=== PATIENT | female | born 1975 | race Caucasian/White ===

== ENCOUNTER 2023-11-30 14:03 | Emergency (ER) | payer OTHER, SELFPAY ==
[2023-11-30 14:07] VITALS: BP 150/104
--- NOTE | 2023-11-30 14:55 | ED.SKININJ ---
HPI-Injury
<Virginia Camara PA-C - Last Filed: 11/30/23 17:20>
General
Chief Complaint: Bite
Source: patient and family
Exam Limitations: none
Time Seen by Provider: 11/30/23 14:13
Nursing documentation reviewed up to this point in time: agreed with
Travel History
Have you had any contact with someone who has COVID-19?: No
Do you have any symptoms of coronavirus? Fever > 100 degrees, chills, cough, shortness of breath, sore throat, loss of taste or smell, muscle aches, or headache?: No
History of Present Illness-Injury
Initial Injury comments:
48 y/o F h/o IDDM
here with right hand lacerations from dog bite
met a pet see supervisor in a parking lot to rehouse and adopt a rotweiler and suddenly was bit by the dog
pt doesn't recall trying to pet the dog
they just had gotten out of the car to talk and the dog jumped up and bit the patient
she has pain and laceration sto right middle and right index fingers
she has slight tingling
pt is anxiious
the dog apparently is a house pet and is UTD on vaccinations
Phy Exam
<Virginia Camara PA-C - Last Filed: 11/30/23 17:20>
Physical Exam
Physical Exam:
GENERAL: Alert , anxios
HEAD: NCAT
CV: cap refill intact right hand fingers
NEUROLOGICAL: Alert and oriented, no focal neuro deficits, , 5/5 strength, sensation intact,
SKIN: Warm and dry, irregular lacerations volar PIP joint right middle finger approx 2 cm and base of 2nd MCP joint palmar aspect approx 1.5 cm
no obvious tendon or nerve injuries
ROM is limited due to pain but she has no deficits
MUSCULOSKELETAL: painful flexion of PIP of middle finger but able to passively range
nv intact
PSYCH: Normal and appropriate interaction.
Course
<Virginia Camara PA-C - Last Filed: 11/30/23 17:20>
Orders/Labs/Results
Orders:
Orders
11/30/23 14:40
CR Hand - Right Min 3 Views Urgent
Comment:
Reason For Exam: righ thand dog bite
11/30/23 14:41
Amoxicillin 875 mg/Clav 125 mg [Augmentin 875 mg/125 mg] 1 tablet PO NOW STA
Tetanus/Diphth/Acelpertussis [Adacel] 0.5 ml IM .ONCE ONE
11/30/23 14:58
Hydrocodone 5/APAP 325 [[place] 5/325] 1 tablet PO NOW STA
Vital Signs
Initial and Last Documented VS:
Initial Vital Signs
Temp Pulse Resp BP Pulse Ox
98.3 F 72 16 150/104 94
11/30/23 14:07 11/30/23 14:07 11/30/23 14:07 11/30/23 14:07 11/30/23 14:07
Last Documented Vital Signs
Temp Pulse Resp BP Pulse Ox
98.3 F 82 18 130/95 97
11/30/23 14:07 11/30/23 17:17 11/30/23 17:17 11/30/23 17:17 11/30/23 17:17
<Ivania Khoury MD - Last Filed: 11/30/23 15:22>
Orders/Labs/Results
Orders:
Orders
11/30/23 14:40
CR Hand - Right Min 3 Views Urgent
Comment:
Reason For Exam: righ thand dog bite
11/30/23 14:41
Amoxicillin 875 mg/Clav 125 mg [Augmentin 875 mg/125 mg] 1 tablet PO NOW STA
Tetanus/Diphth/Acelpertussis [Adacel] 0.5 ml IM .ONCE ONE
11/30/23 14:58
Hydrocodone 5/APAP 325 [[place] 5/325] 1 tablet PO NOW STA
Vital Signs
Initial and Last Documented VS:
Initial Vital Signs
Temp Pulse Resp BP Pulse Ox
98.3 F 72 16 150/104 94
11/30/23 14:07 11/30/23 14:07 11/30/23 14:07 11/30/23 14:07 11/30/23 14:07
Last Documented Vital Signs
Temp Pulse Resp BP Pulse Ox
98.3 F 82 18 130/95 97
11/30/23 14:07 11/30/23 17:17 11/30/23 17:17 11/30/23 17:17 11/30/23 17:17
Procedures
<Virginia Camara PA-C - Last Filed: 11/30/23 17:20>
Laceration Closure
Right Middle Finger(s):
Status of Wound: bite
Description of Wound Edges: ragged and flap-well vascularized
Preparation: cleaned with saline and cleaned with SurClens
Anesthesia: 1% Lidocaine
Revision/Debridement: routine- no revision and irrigate-direct pressure
Wound exploration: explored to base- no FB and no tendon involvement
Type of Closure: single layer closure
Skin Closure Material: 5-0 nylon
Number of sutures: 3
Right Second Finger(s):
Status of Wound: bite
Size of Wound in cm: 2
Description of Wound Edges: ragged
Preparation: cleaned with saline and cleaned with SurClens
Anesthesia: 1% Lidocaine
Revision/Debridement: routine- no revision and irrigate-direct pressure
Wound exploration: explored to base- no FB and no tendon involvement
Type of Closure: single layer closure
Skin Closure Material: 5-0 nylon
Number of sutures: 3
<Virginia Camara PA-C - Last Filed: 11/30/23 17:20>
MDM/Problems Addressed
Differential Diagnosis Includes:
dog bite, laceration,m tendon injury open fracture
MDM/Problems Addressed:
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
[place] and ws meeitng someone outside a pet smart to adopt a dog
the dog had been in a house with previous see supervisor since 8 weeks and is 2 years old
shots are outdated, due for rabies in march 2023 but dog is house pet and can be observed
pt's tetanus was updated
hand lacerations were irrigated with large volume saline and loosely approximate dwith sutures
bacitracin dressing and splint applid (volar)
pt already has an appt in 3 days with pcp and can have wound check
but she also was told to f/u with hand surgery local to her
augmentin for abx coverage
<Virginia Camara PA-C - Last Filed: 11/30/23 17:20>
*Critical Care Note
Total Time (30-74mins, 75-104mins- exclusive of procedures): Not Applicable
ED Attending Note
<Virginia Camara PA-C - Last Filed: 11/30/23 17:20>
-
Portions of this chart may have been created with voice recognition software.� Occasional wrong word or��sound alike� substitutions may have occurred due to the inherent limitations of voice recognition software.
<Ivania Khoury MD - Last Filed: 11/30/23 15:22>
ED Attending Note
Patient seen and examined by attending physician: Yes
I performed the substantive portion of visit, reviewed & personally made and approve the management plan that is documented in note by myself or OMER.: Yes
ED Attending Note:
Patient has excellent pulses in right hand and good cap refill.
Discharge Plan
Departure
Patient Disposition: Home (Routine Discharge)
Date of Disposition: 11/30/23
Time of Disposition: 16:49
Patient with high blood pressure during this ER visit?: Yes
Condition: Fair
Covid-19: Not Applicable
Discharge Problem:
Hand laceration, Dog bite
Instructions: Animal Bites (DC), Laceration Repair With Stitches (DC)
Prescriptions:
New
amoxicillin-pot clavulanate 875-125 mg tablet
1 tab PO BID Qty: 20 0RF
Referrals:
NONE,* [Family Provider] -
Activity Restrictions/Additional Instructions:
Your wounds were loosely approximated with stitches. They should stay in for 7 to 10 days and be removed by either your primary doctor or hand specialist. You should definitely follow-up with a hand specialist next week. It is good that you have
an appointment on Saturday with your primary doctor where they can do a wound check. It is very important to take Augmentin twice a day for 7 to 10 days. I prescribed you 10-day course. Use a probiotic while you are on this medication.
Be sure to remove the splint and dressing tomorrow after keeping it dry overnight. Wash it with soap and water and apply Neosporin and a Band-Aid. Then reapply the splint to keep your fingers in position so that it can heal. You definitely need
to be looking at this several times a day to be sure that there is no drainage or redness or swelling. Move your fingers around and make sure you have no issues bending your fingers.
You can probably stop using the splint on Saturday and just use Band-Aids at that time.
Elevate your arm on pillows when you are home. Take Tylenol or ibuprofen for pain.
Go to a local ER for any signs of infection like swelling, redness, inability to move your fingers, fever or chills, drainage etc.
The dog see supervisor was contacted and the dog shots are outdated however it is a house pet. Dog see supervisor needs to be aware to observe the pet for 10 days to be sure there is no signs of rabies. This very unlikely that a house pet would ever have rabies so
we did not initiate rabies series at this time.
Interventions
Interventions:
*Risk Screen - Suicide Last Done: 11/30/23 14:07
*General Assessment Last Done: 11/30/23 14:07
*Neglect/Abuse Screening Last Done: 11/30/23 14:07
ED- Fall Risk Assessment Last Done: 11/30/23 15:14
*ED COVID-19 Vaccine History Last Done: 11/30/23 15:14
ED-Skin Assessment Last Done: 11/30/23 15:14
[2023-11-30 15:32] VITALS: BMI 46.5
[2023-11-30] MEDS: AUGMENTIN 875 MG/125 MG 1 TABLET PO (15:37)
[2023-11-30] MEDS: NORCO 5/325 1 TABLET PO (15:37)
[2023-11-30] MEDS: ADACEL 0.5 ML IM (15:38)
[2023-11-30 17:17] VITALS: BP 130/95
== END 2023-11-30 17:18 | disposition home or self-care (01) ==
LOC: EMR 14:03
PROVIDERS: EMERGENCY PHYSICIAN Emergency Medicine
DX: S61.250A Open bite of right index finger without damage to nail, initial encounter (principal); S61.252A Open bite of right middle finger without damage to nail, initial encounter; W54.0XXA Bitten by dog, initial encounter; I10 Essential (primary) hypertension; Z23 Encounter for immunization
CPT/HCPCS: 99284; 90471; 12002; 73130; 90715